=== PATIENT | female | born 1960 | race African-American/Black ===

== ENCOUNTER 2018-06-15 08:47 | Outpatient (CLI) | payer MEDICAID ==
--- NOTE | 2018-06-15 11:49 | CT ---
CT OF THE ABDOMEN AND PELVIS WITH AND WITHOUT IV CONTRAST: Indication: History of abdominal tenderness for the past three weeks with constipation. Comparison: CT abdomen/pelvis dated 04-02-15, 01-26-15. FINDINGS: The 2 cm cyst involving the left mid kidney is stable. There is a 5 mm nonobstructing calculus within the left kidney which is stable. Right kidney is normal appearing. Adrenal glands are normal appeari ng. The pancreas and spleen are normal appearing. No focal hepatic lesion is evident. The gallbladder is surgically absent. The bladder, rectum and perirectal soft tissues are unremarkable. The colon is largely decompressed. There is some mild residual stool within the transverse colon and right ascending colon. There is a r etro thecal appendix measuring up to 6 mm. No drainable fluid collection is evident. The small bowel is of normal caliber. No free fluid or lymphadenopathy is evident. There are scattered degenerative and osteoarthritic change. No definite acute osseous abnormality is evident. IMPRESSION: 1. No CT explanation for the patient's abdominal pain. 2. Stable chronic findings as above. POS: [facility]
== END 2018-06-15 08:48 | disposition home or self-care (01) ==
LOC: SCSCT 08:47
PROVIDERS: ATTEND Family Medicine
DX: I50.9 Heart failure, unspecified (principal); R10.84 Generalized abdominal pain; K59.00 Constipation, unspecified; Z87.19 Personal history of other diseases of the digestive system
CPT/HCPCS: 74178

== ENCOUNTER 2019-01-07 15:13 | Outpatient (CLI) | payer OTHER ==
--- NOTE | 2019-01-07 15:55 | RAD ---
ABDOMEN 2 VIEWS: HISTORY: Loss of appetite. Small bowel obstruction. COMPARISON: None. FINDINGS: There are no dilated air-filled loops of large or small bowel. Multiple surgical clips left lower qu adrant of the abdomen. Right upper quadrant surgical clips. There is incomplete fusion of the posterior elements of L5. Moderate facet arthropathy of L4-5 and L 5-S1. Numerous phleboliths in the pelvis. Punctate calculi project over the left renal collecting system. IMPRESSION: 1. No evidence of bowel obstruction. 2. Punctate calculi projecting over the left superior renal collecting system. POS: [facility]
== END 2019-01-07 15:14 | disposition home or self-care (01) ==
LOC: BICRAD 15:13
PROVIDERS: ATTEND Internal Medicine Gastroenterology
DX: K63.89 Other specified diseases of intestine (principal); R63.0 Anorexia; E83.42 Hypomagnesemia; R63.4 Abnormal weight loss
CPT/HCPCS: 74019

== ENCOUNTER 2019-01-21 10:43 | Outpatient (CLI) | payer OTHER ==
--- NOTE | 2019-01-21 11:18 | RAD ---
2 VIEW CHEST: Date: 01/21/19 HISTORY: Cough. FINDINGS: The lung plummer appear clear. Heart size within normal range. AICD leads are noted. Osseous structure s unremarkable. IMPRESSION: No evidence of acute process. POS: [facility]
== END 2019-01-21 10:44 | disposition home or self-care (01) ==
LOC: RAD 10:43
PROVIDERS: ATTEND Nurse Practitioner Family
DX: R05 Cough (principal)
CPT/HCPCS: 71046

== ENCOUNTER 2019-01-24 12:56 | Day surgery (SDC) | payer OTHER ==
[~2019-01-24 12:56] MED LIST: Lidocaine 1% PF 5 ML VIAL ONE; Ondansetron PF 4 MG/2 ML Vial ONE; PROPOFOL 200 MG/20 ML VIAL ONE
[2019-01-24] MEDS ORDERED: Ondansetron PF 4 MG/2 ML Vial ONE (17:20)
--- NOTE | 2019-01-24 23:44 | OP ---
DATE OF PROCEDURE: 01/24/2019 TITLE OF PROCEDURE: Colonoscopy with biopsy. PREPROCEDURE DIAGNOSES: 1. Colon cancer screening. 2. Incidental constipation. POSTPROCEDURE DIAGNOSES: 1. Exam to ileocecal valve, good bowel preparation. 2. Diffusely tortuous colon, exam of cecal pole limited. 3. Diminutive 2 mm polyp in the transverse colon, excised with biopsy forceps. 4. Small internal hemorrhoids. 5. Otherwise normal colonoscopy. PROCEDURE IN DETAIL: Written informed consent was obtained. Upon completion of the EGD, the patient was repositioned for the colonoscopy. A digital rectal exam was performed that was unremarkable. The Pentax video colonoscope was inserted through the anal canal and advanced under direct visualization to the ileocecal valve. The quality of the bowel preparation was good. Due to a diffusely tortuous colon, the exam of the cecal pole was limited. The patient was repositioned in order to advance the colonoscope to the cecum, but this was unsuccessful. The colonic mucosa appeared grossly normal with normal vascular pattern and haustral folds. In the transverse colon, a diminutive 2 mm sessile polyp was identified and excised by biopsy forceps. No other synchronous polyps were identified. In the rectum, a retroflexed view demonstrated small internal hemorrhoids that were not actively bleeding. The colon was decompressed as the colonoscope was completely removed from the patient. She was transferred to the Day Stay surgery area for postprocedure monitoring. There were no immediate complications. RECOMMENDATIONS: 1. Await pathology results. 2. Ask the patient to call me in 1 week for pathology results. 3. Repeat colonoscopy in 5 to 10 years pending the pathology results. 4. Follow up in GI clinic in 1 month. Job ID: [id number]
--- NOTE | 2019-01-24 23:55 | OP ---
DATE OF PROCEDURE: 01/24/2019 PROCEDURE PERFORMED: Esophagogastroduodenoscopy with biopsy. PREPROCEDURE DIAGNOSES: 1. Epigastric pain. 2. Anorexia. 3. Recent 7-pound weight loss. POSTPROCEDURE DIAGNOSES: 1. Exam to second portion of duodenum. 2. Normal esophagus. 3. Mild proximal body gastritis, biopsied. 4. No gastric or duodenal ulcers identified. 5. Grossly normal-appearing duodenum, biopsied for histology. 6. Otherwise normal esophagogastroduodenoscopy. ANESTHESIA: Total intravenous anesthesia by Dawit Jones CRNA. PROCEDURE IN DETAIL: Written informed consent was obtained. The patient was brought to the endoscopy suite. Total intravenous anesthesia was provided. The patient was placed in the left lateral decubitus position and a bite block was inserted into the mouth. A Pentax video diagnostic gastroscope was introduced into the oral cavity and the esophagus was carefully intubated. The gastroscope was advanced under direct visualization to the second portion of the duodenum. Endoscopic findings revealed a grossly normal appearing esophagus with overall normal motility and no hiatal hernia or esophageal erosion. The stomach was entered and carefully examined. This included a retroflex view of the cardia and fundus. The gastric mucosa of the proximal body and fundus demonstrated mild diffuse erythema and mild edema. No ulcer or active bleeding was seen. Biopsies were obtained for histology. The duodenum from the bulb to the second portion was then examined and appeared grossly normal. Random biopsies were obtained in the proximal duodenum to evaluate for any histological changes. The stomach was decompressed as the endoscope was removed from the patient. She was then repositioned for the colonoscopy. RECOMMENDATIONS: 1. Await biopsy results. 2. Ask the patient to call me in one week for biopsy results. 3. Initiate Zantac 150 mg p.o. b.i.d. for six weeks. 4. Follow up in GI clinic in one month. 5. Proceed with colonoscopy. Job ID: [id number]
== END 2019-01-24 17:55 | disposition home or self-care (01) ==
LOC: SDC 12:56
PROVIDERS: ATTEND Internal Medicine Gastroenterology
PROC: 0DB68ZX Excision of Stomach, Via Natural or Artificial Opening Endoscopic, Diagnostic (ICD-10-PCS; principal; 2019-01-24)
PROC: 0DBL8ZX Excision of Transverse Colon, Via Natural or Artificial Opening Endoscopic, Diagnostic (ICD-10-PCS; principal; 2019-01-24)
PROC: 0DB98ZX Excision of Duodenum, Via Natural or Artificial Opening Endoscopic, Diagnostic (ICD-10-PCS; principal; 2019-01-24)
DX: D12.3 Benign neoplasm of transverse colon (principal); K63.89 Other specified diseases of intestine; K59.00 Constipation, unspecified; K64.8 Other hemorrhoids; K29.50 Unspecified chronic gastritis without bleeding; F41.9 Anxiety disorder, unspecified; I48.91 Unspecified atrial fibrillation; E11.9 Type 2 diabetes mellitus without complications; I10 Essential (primary) hypertension; E07.9 Disorder of thyroid, unspecified; Z79.84 Long term (current) use of oral hypoglycemic drugs; Z79.899 Other long term (current) drug therapy; Z88.0 Allergy status to penicillin; Z88.1 Allergy status to other antibiotic agents; Z88.8 Allergy status to other drugs, medicaments and biological substances
CPT/HCPCS: 36416; 88305; 88312; J2001; J2405; J2704